=== PATIENT | male | born 1975 | race Caucasian/White ===

== ENCOUNTER → 2016-08-15 | Outpatient (REF) ==
[~2016-08-15] MED LIST: PAXIL 20MG20 MG PO
== END ==
LOC: ZLAB.WCH 19:11
DX: Z01.89 Encounter for other specified special examinations (principal)

== ENCOUNTER → 2016-08-21 | Outpatient (REF) | LOC: ZLAB.WCH 12:15 | DX: Z01.89 Encounter for other specified special examinations (principal) ==

== ENCOUNTER → 2016-11-13 | Outpatient (REF) | LOC: ZLAB.WCH 16:03 | DX: Z01.89 Encounter for other specified special examinations (principal) ==

== ENCOUNTER → 2018-03-08 | Outpatient (REF) | LOC: ZLAB.WCH 08:33 | DX: Z01.89 Encounter for other specified special examinations (principal) ==